=== PATIENT | male | born 1960 | race Caucasian/White ===

== ENCOUNTER 2023-01-19 09:20 | Outpatient (CLI) | payer BC, SELFPAY | END 2023-01-19 09:21 | disposition home or self-care (01) | LOC: NFLDREF 01-20 09:04 | PROVIDERS: PCP Family Medicine; Referring Provider Family Medicine; Visit Provider Family Medicine | DX: Z00.00 Encounter for general adult medical examination without abnormal findings (principal); E78.5 Hyperlipidemia, unspecified; I10 Essential (primary) hypertension; N40.0 Benign prostatic hyperplasia without lower urinary tract symptoms; F41.9 Anxiety disorder, unspecified; R97.20 Elevated prostate specific antigen [PSA] | CPT/HCPCS: 80053; 80061; 84153 ==

== ENCOUNTER 2023-04-13 09:04 | Outpatient (CLI) | payer BC, SELFPAY | END 2023-04-13 09:05 | disposition home or self-care (01) | LOC: NFLDREF 09:04 | PROVIDERS: PCP Family Medicine; Visit Provider Family Medicine | DX: Z12.5 Encounter for screening for malignant neoplasm of prostate (principal) | CPT/HCPCS: 84153 ==

== ENCOUNTER 2024-01-27 07:07 | Day surgery (SDC) | payer BC, SELFPAY ==
[2024-01-27] VITALS (7 sets, daily range): BP systolic 101–180; BP diastolic 66–99; PULSE 38–43; RESP 16; TEMP 36.3–36.7; O2SAT 94–96; BMI 27.0
[2024-01-27] MEDS: LACTATED RINGERS 1000 ML 1,000 ML 100 ML IV (10:45)
[2024-01-27] MEDS: fentaNYL 100 MCG/2 ML inj IVP (12:40)
[2024-01-27] MEDS: MIDAZOLAM HCL 1 MG/ML inj IVP (12:40)
[2024-01-27] MEDS: SODIUM CHLORIDE 0.9 % (FLUSH) 10 ML SYRINGE IVF (12:43)
--- NOTE | 2024-01-27 13:00 | XR_ITS ---
Patient: OSIEL SAAVEDRA Facility:?[facility] Patient ID:?[id number] Site Patient ID:?[id number]. Site :?1960 Study:?XRay-Extremity Left WRIST 3 VIEWS-01/27/2024 3:02:31 PM Ordering Physician:POLO Final Report: Indication: Left wrist ORIF. Technique: Three fluoroscopic intraoperative images of the left wrist were submitted for review. 31 seconds of intraoperative fluoroscopy time. Comparison: 01/22/2024. Findings/impression : Intraoperative fluoroscopic images demonstrate a partially threaded lag screw across the radial styloid. Fracture line is in anatomic alignment. No new fracture is seen. Please refer to operative report for additional details. Dictated by Shruti Watkins MD @ 01/28/2024 12:21:12 PM Signed by:?Shruti Watkins MD @01/28/2024 12:21:12 PM (Electronic Signature)
--- NOTE | 2024-01-27 13:06 | W.PM.NB ---
Nerve Block Nerve Block Time Seen by Provider: 12:46 Date Seen: 01/27/24 Type of block requested by surgeon for post-operative analgesia: axillary Time out performed: Yes Verification of patient name: Yes Verification of date of : Yes Site marking: site marked Name of person performing procedure: Brooks Continuous monitoring Was continuous monitoring of O2 sat, B/P, cardiac catheterization technician, recorded every 15 minutes?: Yes Procedure Checklist: sterile prep, needles and gloves Ultrasound guided. Images saved: Yes Medications given in 5ml increments after negative aspiration: Ropivicaine %: 0.5 mL: 30 Needle gauge: 22 Patient tolerated procedure well: Yes Additional comments: Needle noted adjacent to nerve Block Charges Block Charge (with Pro Fee): Brachial Plexus Use of Ultrasound Machine for Block: Yes- US Guidance/pain block
--- NOTE | 2024-01-27 13:07 | W.ANESCHARGE ---
Anesthesia Charges Start Date/Time Anesthesia Start Date: 01/27/24 Anesthesia Start Time: 14:01 Stop Date/Time Anesthesia Stop Date: 01/27/24 Anesthesia Stop Time: 15:03
[2024-01-27] MEDS: CEFAZOLIN 2 GM INJ IVP (14:06)
--- NOTE | 2024-01-27 14:08 | W.ANESCHARGE ---
Anesthesia Charges Start Date/Time Anesthesia Start Date: 01/27/24 Anesthesia Start Time: 14:01 Stop Date/Time Anesthesia Stop Date: 01/27/24 Anesthesia Stop Time: 15:03
--- NOTE | 2024-01-27 14:53 | PM.ORPRC ---
Procedure Note Date of procedure: 01/27/24 Procedure: PREOPERATIVE DIAGNOSIS: Left upper extremity radial styloid fracture POSTOPERATIVE DIAGNOSIS: Left upper extremity radial styloid fracture NAME OF OPERATION: Closed reduction, percutaneous screw fixation SURGEON: Malcom Samaniego MD WAFER POLISHING LEAD WORKER: CATINA Quintanilla ANESTHESIA: Axillary block plus monitored anesthesia care ESTIMATED BLOOD LOSS: 5 mL COMPLICATIONS: None SPECIMENS: None DRAINS: None PREOPERATIVE ANTIBIOTICS: Ancef 2 grams INDICATIONS: The patient is a 63-year-old who fell landing on their upper extremity sustaining the above injury. Given the fracture pattern, reduction and percutaneous screw fixation were recommended. The risks, benefits and expected outcomes were discussed in detail. These included but were not limited to: Infection, bleeding, injury to blood vessel or nerve, venous thromboembolism. All questions were answered to their satisfaction. Use of an research program assistant was necessary throughout the case for patient positioning and safety, maintenance of the reduction, surgical site dressing and splint application. PROCEDURE: A axillary block was placed by Anesthesia. The patient was placed supine on the operating room table. IV sedation was administered. The extremity was prepped and draped in the usual sterile fashion. A guide pin was placed percutaneously through the radial styloid, across the fracture site engaging the ulnar cortex of the proximal fragment. A stab incision was made around the guide pin and blunt dissection was carried down to the radial styloid. The countersink was used. Length was measured. The cannulated drill was used on the near cortex. An Arthrex 4.0 mm x 40 mm cannulated screw was placed across the fracture. The screw head was visualized and was not impinging on the crossing tendons, vessels or branches of the radial nerve. Its placement was confirmed with the image intensifier showing it is well placed. The reduction is anatomic and stable to fluoroscopic exam with radial and ulnar deviation of the wrist. The wound was irrigated normal saline. It was closed with a 3-0 Vicry deep and glue was used to seal the skin. A dry dressing and short-arm thumb spica splint was applied. These steps were all completed by the research program assistant. Sponge and needle counts were correct x2. The patient tolerated the procedure well, there were no apparent complications. They were taken to the postanesthesia care unit in satisfactory condition. PLAN: The patient will be discharged home. They will work on elevation of the hand and active range of motion of the fingers. They will follow up next week in the office for a wound check with three views of the wrist out of the splint prior to being seen in preparation for early active motion with a Velcro wrist brace.
--- NOTE | 2024-01-27 16:18 | SUR.PHASEII ---
Patient tolerated toast, water. Patient verbalized readiness to be discharged and understanding of discharge instructions. Patient voided prior to discharge.
== END 2024-01-27 15:57 | disposition home or self-care (01) ==
LOC: OR 07:07
PROVIDERS: PCP Family Medicine; Visit Provider Orthopaedic Surgery
PROC: (CPT 25575; principal; 2024-01-27 13:00)
DX: S52.512A Displaced fracture of left radial styloid process, initial encounter for closed fracture (principal); G89.18 Other acute postprocedural pain
CPT/HCPCS: 25606; 01810; 01820; 01830; 64415; 73110; 76000; 76942; A4580; C1713; J0690; J2250; J2704; J2795; J3010; J7120

== ENCOUNTER 2024-02-24 07:50 | Outpatient (CLI) | payer BC, SELFPAY | END 2024-02-24 07:51 | disposition home or self-care (01) | LOC: NFLDREF 02-28 13:31 | PROVIDERS: PCP Family Medicine; Referring Provider Family Medicine; Visit Provider Family Medicine | DX: Z12.5 Encounter for screening for malignant neoplasm of prostate (principal); E78.5 Hyperlipidemia, unspecified; I10 Essential (primary) hypertension | CPT/HCPCS: 80053; 80061; G0103 ==

== ENCOUNTER 2024-06-05 07:16 | Outpatient (CLI) | payer BC, SELFPAY ==
--- OUTSIDE RECORDS SUMMARY | 2024-06-05 07:18 | XMS_ITS | Clinical Summary ---
Author Organization [facility] Address [place], [place] [address] Care Team Providers Care Pilot Control Operator Helper Name Role Phone Mason Saldana MD Primary Care Provider [phone] Allergies No known active allergies Medications No known medications Active Problems Problem Noted Date Diagnosed Date Routine general medical exam ination at a health care facility 11/21/2008 Lipid screening 11/21/2008 Unspecified essential hypertension 11/21/2008 Other malaise and fatigue 11/21/2008 Tobacco use disorder 11/21/2008 Encounters Date Type Department Care Team Description 05/08/2024 2:52 PM CDT - 05/08/2024 11:59 PM CDT Hospital Encounter [address] [address] Dion Manuel MD Elevated PSA 05/08/2024 Travel 04/27/2024 Orders Only [address] [address] Dion Manuel MD 1 scan: (1-Ord) diag order from Last 3 Months Immunizations Name Administration Dates Next Due Td (Age >=7 Years) 06/05/2003 Family History Medical History Relation Name Comments Heart Disease Father Cancer Paternal Uncle Type? Hypertension Sister Anesthesia Problem No Family History Blood Disease No Family History Relation Name Status Comments Father (Age 49) [place] Mother Alive Paternal Uncle Sister Social History Tobacco Use Types Packs/Day Years Used Date Smoking Tobacco: Every Day Cigarettes Alcohol Use Standard Drinks/Week Comments Yes 0 (1 standard drink = 0.6 oz pur e alcohol) 5-6 days/week Sex and Gender Information Value Date Recorded Sex Assigned at Not on file Gender Identity Not on file Sexual Orientation Not on file Obstetrics History Last Filed Vital Signs Vital Sign Reading Time Taken Comments Blood Pressure 158/98 11/21/2008 1:35 PM KNOT TIER Pulse 54 11/21/2008 1:03 PM KNOT TIER Temperature 36.3 ??C (97.4 ??F) 11/21/2008 1:03 PM CS T Respiratory Rate - - Oxygen Saturation - - Inhaled Oxygen Concentration - - Weight 81 kg (178 lb 9.6 oz) 11/21/2008 1:03 PM KNOT TIER Height 179.7 cm (5' 10.75) 11/21/2008 1:[address] Body Mass Index 25.09 11/21/2008 1:03 PM KNOT TIER Plan of Treatment Health Maintenance Due Date Last Done Comments Tdap 1971 Depression screening for age 12+ 1972 HIV for age 15-65 1975 BMI (ht and wt on same day) for age 18+ 1978 Hepatitis C screening for ag e 18-79 1978 Colonoscopy through age 75 2005 Zoster (shingles) series for age 50+ (1 of 2) 2010 Tetanus booster 06/05/2013 06/05/2003 Lipids for age 45-75 11/28/2013 11/28/2008 COVID-19 vaccine series (2022- season) 2024 Influenza for age 50-64 05/21/2024 Pneumococcal series for age 6-64 Aged Out No longer eligible based on patient's age to complete this topic Procedures Procedure Name Priority Date/Time Associated Diagnosis Comments MR PELVIS PROSTATE WWO Routine 05/08/2024 5:06 PM CDT Elevated PSA LIPID PANEL W REFLEX MEASURED LDL Routine 11/28/2008 9:16 AM CDT Lipid Screening from Last 3 Months or Most Recently Relevant to Health Maintenance Results * MR PROSTATE W/WO CONTRAST (05/08/2024 5:06 PM CDT) Anatomical Region Laterality Modality Pelvis Magnetic Resonan ce 05/10/2024 9:27 AM CDT Impressions 05/10/2024 9:27 AM CDT 1. PI-RADS 3 lesion in the left peripheral zone. REFERENCE: PI-RADS Prostate Imaging - Reporting and Data System 2015 version 2. ??ACR, the [employer] [place] [employer]. Dictated by Alphonso Corcoran MD @ 05/10/2024 9:27:21 AM (Electronically Signed) Narrative 05/10/2024 9:27 AM CDT For Patients: ??As a result of the Cures Act, medical imaging exams and procedure reports are released immediately into your electronic medical record. ??You may view this report before your referring provider. ??If you have questions, please contact your health care provider. CLINICAL INDICATION: Elevated PSA. TECHNIQUE: MRI of the prostate on a 1.5T machine with T1, T2, diffusion-weighted and dynamic post-contrast images obtained. [employer] post-processing software was used for image analysis. ?? FINDINGS: The prostate midline length = 6.1 cm, width at base = 5.1 cm, mid = 6.1 cm, apex = 4.8 cm. Estimated volume = 90 cc. 1.9 x 1.2 x 0.8 cm lesion in the left peripheral zone at the base of the prostate gland at the 5 to 6 o`clock position shows mild decreased ADC and increased DWI signal. PI-RADS category 3: Intermediate risk of prostate cancer. No justin-prostatic or pelvic side wall adenopathy. No other bony or soft tissue abnormalities identified. Procedure Note Alphonso Corcoran MD - 05/10/2024 For Patients: As a result of the Cures Act, medical imagingexams and procedure reports are released immediately into your electronicmedical record. You may view this report before your referring provider.If you have questions, please contact your health care provider. CLINICAL INDICATION: Elevated PSA. TECHNIQUE: MRI of the prostate on a 1.5T machine with T1, T2, diffusion-weighted anddynamic post-contrast images obtained. [employer] post-processing software was used for image analysis. FINDINGS: The prostate midline length = 6.1 cm, width at base = 5.1 cm, mid = 6.1cm, apex = 4.8 cm. Estimated volume = 90 cc. 1.9 x 1.2 x 0.8 cm lesion in the left peripheral zone at the base of theprostate gland at the 5 to 6 o`clock position shows mild decreased ADC andincreased DWI signal. PI-RADS category 3: Intermediate risk of prostate cancer. No justin-prostatic or pelvic side wall adenopathy. No other bony or soft tissue abnormalities identified. IMPRESSION: 1. PI-RADS 3 lesion in the left peripheral zone. REFERENCE: PI-RADS Prostate Imaging - Reporting and Data System 2015 version 2. ACR,the [employer] [place] [employer]. Dictated by Alphonso Corcoran MD @ 05/10/2024 9:27:21 AM (Electronically Signed) Dion Manuel MD MR * (ABNORMAL) LIPID PANEL W REFLEX MEASURED LDL (11/28/2008 9:16 AM CDT) CHOLESTEROL,TOTAL 195 110 - 199 mg/dL [facility] TRIGLYCERIDES 126 <150 mg/dL [facility] HDL CHOLESTEROL 39(L) >40 mg/dL [facility] CHOL/HDL RATIO 5.00(H) <4.51 [facility] LDL CHOLESTEROL 131(H) <131 mg/dL [facility] PATIENT STATUS Fasting [facility] Blood specimen (specimen) BLOOD SPECIMEN / Unknown 11/28/2008 9:16 AM CDT 11/28/2008 9:11 AM CDT Dwain Boston MD CHEMISTRY [facility] [address] [place] [address] from Last 3 Months or Most Recently Relevant to Health Maintenance Care Teams Pilot Control Operator Helper Relationship Specialty Start Date End Date Mason Saldana MD [address] [place] [phone] PCP - General Family Practice 05/08/24
--- NOTE | 2024-06-05 08:17 | W.ANESCHARGE ---
Anesthesia Charges Start Date/Time Anesthesia Start Date: 06/05/24 Anesthesia Start Time: 07:50 Stop Date/Time Anesthesia Stop Date: 06/05/24 Anesthesia Stop Time: 08:12
--- NOTE | 2024-06-05 12:04 | W.ANESCHARGE ---
Anesthesia Charges Start Date/Time Anesthesia Start Date: 06/05/24 Anesthesia Start Time: 07:50 Stop Date/Time Anesthesia Stop Date: 06/05/24 Anesthesia Stop Time: 08:12
== END 2024-06-05 07:17 | disposition home or self-care (01) ==
LOC: OP CLINIC 07:16
PROVIDERS: PCP Family Medicine; Visit Provider Internal Medicine
DX: Z86.010 Personal history of colon polyps (principal)
CPT/HCPCS: 00812; 45378; J2704

== ENCOUNTER 2024-11-29 08:49 | Outpatient (CLI) | payer BC, SELFPAY | END 2024-11-29 08:50 | disposition home or self-care (01) | LOC: NFLDREF 08:49 | PROVIDERS: PCP Family Medicine; Visit Provider Family Medicine | DX: Z01.818 Encounter for other preprocedural examination (principal) | CPT/HCPCS: 80048 ==

== ENCOUNTER 2024-12-04 07:36 | Day surgery (SDC) | payer BC, SELFPAY ==
[2024-12-04] VITALS (14 sets, daily range): BP systolic 111–187; BP diastolic 69–124; PULSE 36–48; RESP 12–16; TEMP 36.1–36.7; O2SAT 95–98; BMI 26.9
[2024-12-04] MEDS: LACTATED RINGERS 1000 ML 1,000 ML 100 ML IV (08:20)
[2024-12-04] MEDS: SODIUM CHLORIDE 0.9 % (FLUSH) 10 ML SYRINGE IVF (08:20)
--- NOTE | 2024-12-04 09:37 | W.PM.H&PU ---
History & Physical Update History & Physical Update H&P Reviewed and patient assessed: No changes noted
--- NOTE | 2024-12-04 09:37 | PM.GSPRC ---
Operative Note Date of procedure: 12/04/24 Pre-op diagnosis: Symptomatic internal and external hemorrhoids Post-op diagnosis: Same Type of Procedure: 2 quadrant hemorrhoidectomy Indications: The patient is a 64-year-old male who was recently seen in clinic with concerns for hemorrhoids for several years. He states that in the last several months his symptoms have become more severe and he has had bright red blood per rectum and difficulty with hygiene. He was found to have several external hemorrhoidal tags as well as partially prolapsed internal hemorrhoidal tissue. Surgical hemorrhoidectomy was discussed and he agreed to proceed. Procedure Description: After discussing the risks and benefits of the procedure, the patient signed informed consent.? The patient was brought to the operating room. A spinal anesthetic was administered. Please see anesthesia notes for details. The patient was then placed in the prone joanna-knife position with care to pad his pressure points. Sedation was then administered.? The operative site was then prepped and draped in the usual sterile fashion.? A time-out was then performed. The patient had a pedunculated external skin tag in the left posterior position. He had a larger broad-based area of redundant external hemorrhoidal tissue with slightly prolapsed internal hemorrhoid tissue noted. This was at the left anterolateral position. A digital rectal exam was performed. No masses were palpable. The Mejia Noxen was then introduced into the anal canal. The pedunculated skin tag externally in the left posterior was noted to be contiguous with an internal hemorrhoidal column. As mentioned, the left anterolateral external hemorrhoidal tissue was contiguous with a larger cushion internally. The patient also had some redundant tissue in the left posterior. This was all internal. The anoderm was incised at the distal base of the pedunculated skin tag. The tissue was then scored using cautery to the plan extent of excision at the apex of the internal hemorrhoid. Cautery was then used to excise the skin tag and internal hemorrhoidal tissue, with care to stay above the palpable sphincter complex. The tissue was completely excised and 3-0 chromic suture was then run from the apex within the anal canal to the anal derm in a locking fashion. Hemostasis appeared excellent. The small apex on the anoderm was left open. Next, attention was turned to the left anterolateral position. Similarly the distal and proximal extents was marked with cautery and the tissue then scored. The external hemorrhoidal tissue was then elevated off of the sphincter complex using cautery with care to avoid injury to the sphincter muscle palpable below. The internal hemorrhoidal tissue was then excised. The tissue from both areas was sent to pathology. Hemostasis was achieved with a combination of cautery and similarly by over-sewing the internal hemorrhoidal column using 3-0 chromic suture with a locking fashion. Again the very distal aspect on the anal derm was left open. The wounds were again examined and hemostasis appeared excellent. The anal canal did not appear narrowed. Surgicel was placed over both suture lines. The patient tolerated the procedure well. He was then woken and transported into the recovery area in stable condition. ? The patient tolerated the procedure well. Findings: 1. Large pedunculated external hemorrhoid in the left posterior position. 2. External hemorrhoidal tissue noted anteriorly contiguous with left anterolateral hemorrhoidal column. 3. Internal hemorrhoids noted in the right posterior position. Anesthesia: MAC and spinal Surgeon: Isamar Cordero MD Estimated blood loss (mL): 5 Specimen: Other Additional Specimen Information: Hemorrhoidal tissue Condition: stable Disposition: PACU
[2024-12-04] MEDS: CEFAZOLIN 1 GM inj IVP (10:28)
--- NOTE | 2024-12-04 11:09 | P.ANES_ITS ---
Anesthesia Charges Start Date/Time Anesthesia Start Date: 12/04/24 Anesthesia Start Time: 10:03 Stop Date/Time Anesthesia Stop Date: 12/04/24 Anesthesia Stop Time: 11:05 Coding CPT Codes CPT Codes: ANESTH ANORECTAL SURGERY - 80428 ([id number]) P3 - PATIENT W/SEVERE SYS DISEASE, QK - PERSONNEL RESEARCH SCIENTIST 2-4 CNCRNT ANES PROC, QX - MACHINE CLOTH MEASURER SVC W/ MD MED DIRECTION
--- NOTE | 2024-12-04 11:09 | W.ANESCHARGE ---
Anesthesia Charges Start Date/Time Anesthesia Start Date: 12/04/24 Anesthesia Start Time: 10:03 Stop Date/Time Anesthesia Stop Date: 12/04/24 Anesthesia Stop Time: 11:05 Coding CPT Codes CPT Codes: ANESTH ANORECTAL SURGERY - 00290 ([id number]) P3 - PATIENT W/SEVERE SYS DISEASE, QK - PROGRAM SUPPORT CLERK 2-4 CNCRNT ANES PROC, QX - TRAINING AND QUALITY MANAGER SVC W/ MD MED DIRECTION
--- NOTE | 2024-12-04 11:25 | P.ANES_ITS ---
Anesthesia Charges Start Date/Time Anesthesia Start Date: 12/04/24 Anesthesia Start Time: 10:03 Stop Date/Time Anesthesia Stop Date: 12/04/24 Anesthesia Stop Time: 11:05 Coding CPT Codes CPT Codes: ANESTH ANORECTAL SURGERY - 31884 ([id number]) P3 - PATIENT W/SEVERE SYS DISEASE, QK - AGILE TEST LEAD 2-4 CNCRNT ANES PROC, QX - DIRECTOR INFORMATION SECURITY SVC W/ MD MED DIRECTION
--- NOTE | 2024-12-04 11:25 | W.ANESCHARGE ---
Anesthesia Charges Start Date/Time Anesthesia Start Date: 12/04/24 Anesthesia Start Time: 10:03 Stop Date/Time Anesthesia Stop Date: 12/04/24 Anesthesia Stop Time: 11:05 Coding CPT Codes CPT Codes: ANESTH ANORECTAL SURGERY - 78520 ([id number]) P3 - PATIENT W/SEVERE SYS DISEASE, QK - MOISTURE METER OPERATOR 2-4 CNCRNT ANES PROC, QX - TONGUE LINING STITCHER SVC W/ MD MED DIRECTION
[2024-12-04] MEDS: HYDRALAZINE HCL 20 MG/ML inj 10 MG IVP (12:49)
--- NOTE | 2024-12-04 13:01 | SUR.PHASEII ---
Patient's blood pressures increasing during PACU Phase II. Anesthesia aware, patient anxious to discharge. Patient up to void, denies pain. Hydralazine given. Patient refusing to stay for follow-up blood pressures as ordered per protocol. AMA paperwork signed at 1257 and ambulatory from hospital.
== END 2024-12-04 12:57 | disposition home or self-care (01) ==
PROVIDERS: PCP Family Medicine; Visit Provider Surgery
PROC: (CPT 46260; principal; 2024-12-04 09:00)
DX: K64.8 Other hemorrhoids (principal); K64.4 Residual hemorrhoidal skin tags
CPT/HCPCS: 46260; 00902; J0360; J0690; J2250; J2704; J3010; J7120

== ENCOUNTER 2025-03-01 06:15 | Day surgery (SDC) | payer BC, SELFPAY ==
[2025-03-01] VITALS (8 sets, daily range): BP systolic 146–170; BP diastolic 71–91; PULSE 45–52; RESP 15–16; TEMP 37–37.1; O2SAT 96–99; BMI 25.7
[2025-03-01] MEDS: BUPIVACAINE 0.5 %/EPI 1:200K INJECTION (07:15)
[2025-03-01] MEDS: LIDOCAINE 1%-EPI 1:100,000 20 ML INFILTRATI (07:15)
--- NOTE | 2025-03-01 07:42 | P.ORPRC_ITS ---
Procedure Note Date of procedure: 03/01/25 Procedure: Preop diagnosis: Left upper extremity carpal tunnel syndrome Postop diagnosis: Left upper extremity carpal tunnel syndrome Procedure: Left upper extremity carpal tunnel release Anesthesia: Local Surgeon: Malcom Samaniego MD marketing administrative assistant: NATHANIEL Maki EBL: 2 mL Complications: None Specimens: None Drains: None Indications: The patient has a history of left upper extremity carpal tunnel syndrome symptoms. Despite appropriate nonoperative management consisting of nighttime bracing and occupational therapy they continue to have symptoms. Operative intervention was recommended. The risks, benefits alternatives and expected outcomes were discussed in detail. These included but were not limited to: Infection, bleeding, injury to blood vessel or nerve, venous thromboembolism. All questions were answered to their satisfaction. The patient was placed supine on the operating room table. Local anesthesia was established with 0.5% Marcaine with epinephrine and 2% lidocaine with epinephrine. The hand was prepped and draped in usual sterile fashion. A longitudinal incision was made centered over the radial border of the ring finger at the base of the palm. Subcutaneous dissection was sharply taken through the palmar fascia and the palmaris brevis to the transverse carpal ligament. The ligament was divided in line with the incision. Proximal and distal dissection was carried with tenotomy and Metzenbaum scissors for a wide decompression of the carpal tunnel. The wound was closed with a 3-0 nylon. A bulky dry dressing was applied, sponge and needle counts were correct x 2. The patient tolerated the procedure well, there were no apparent complications. They were sent to same day surgery in satisfactory condition. Plan: Use of the hand as tolerates. Discontinue the intraoperative dressing on postoperative day 3 and may get the wound wet as tolerates. Follow up in the office in 2 weeks for a wound check and suture removal. Given the severity of the disease, it will likely take several to many months for the nerve to recover.
== END 2025-03-01 07:57 | disposition home or self-care (01) ==
LOC: OR 06:15
PROVIDERS: PCP Family Medicine; Visit Provider Orthopaedic Surgery
PROC: (CPT 64721; principal; 2025-03-01 07:15)
DX: G56.02 Carpal tunnel syndrome, left upper limb (principal)
CPT/HCPCS: 64721; J3490

== ENCOUNTER 2025-06-14 07:45 | Outpatient (CLI) | payer MEDICARE, BC, SELFPAY | END 2025-06-14 07:46 | disposition home or self-care (01) | LOC: NFLDREF 06-18 03:27 | PROVIDERS: PCP Family Medicine; Referring Provider Family Medicine; Visit Provider Family Medicine | DX: E78.5 Hyperlipidemia, unspecified (principal); R97.20 Elevated prostate specific antigen [PSA]; Z12.5 Encounter for screening for malignant neoplasm of prostate | CPT/HCPCS: 80053; 80061; G0103 ==

== ENCOUNTER 2025-06-27 08:04 | Outpatient (CLI) | payer MEDICARE, BC, SELFPAY ==
--- NOTE | 2025-06-27 08:15 | CRLHL7_ITS ---
For Patients: As a result of the Century Cures Act, medical imaging exams and procedure reports are released immediately into your electronic medical record. You may view this report before your referring provider. If you have questions, please contact your health care provider. INDICATION: Abdominal aortic aneurysm screening. TECHNIQUE: Ultrasound aorta with color Doppler analysis. COMPARISON: None. FINDINGS: Proximal abdominal aorta is 2.9 x 2.8 cm. Mid abdominal aorta is 2.4 x 2.5 cm. Aneurysmal dilatation of the distal abdominal aorta extends near the bifurcation and measures 5 x 4.9 cm in greatest AP and transverse dimension, extending over a length of 5.7 cm. Aorta at the bifurcation is 2.9 x 2.6 cm. Right common iliac artery is 2 cm. Left common iliac artery is 1.8 cm. IMPRESSION: Infrarenal abdominal aortic aneurysm measuring 5 x 4.9 cm. Vascular surgery consultation regarding further management recommended. Original attempt to contact Dr. Saldana by telephone at 8:45 a.m. on 06/27/2025 was unsuccessful. An addendum to this report will be issued once confirmed. Dictated by Bernardo Doherty MD @ 06/27/2025 8:52:20 AM Dictated by: Bernardo Doherty MD @ 06/27/2025 08:52:41 (Electronically Signed)
== END 2025-06-27 08:05 | disposition home or self-care (01) ==
LOC: US 08:06
PROVIDERS: PCP Family Medicine; Visit Provider Family Medicine
DX: Z13.6 Encounter for screening for cardiovascular disorders (principal); I71.43 Infrarenal abdominal aortic aneurysm, without rupture
CPT/HCPCS: 76706

== ENCOUNTER 2025-09-14 18:28 | Outpatient (CLI) | payer MEDICARE, BC, SELFPAY | END 2025-09-14 18:29 | disposition home or self-care (01) | LOC: AMB 09-16 23:30 | PROVIDERS: PCP Family Medicine; Visit Provider Emergency Medicine Emergency Medical Services | DX: R55 Syncope and collapse (principal) | CPT/HCPCS: A0425; A0427 ==

== ENCOUNTER 2025-09-14 18:57 | Emergency (ER) | payer MEDICARE, BC, SELFPAY ==
--- OUTSIDE RECORDS SUMMARY | 2025-02-03 03:00 | XMS_ITS ---
Author Organization [facility] Address [address] [place] [phone] Care Team Providers Care Fruit Ii Farmworker Name Role Phone Migration, Provider Unavailable Unavailable REASON FOR VISIT EMR-Francis Encounters Encounter Location Date Provider Diagnosis [facility] [address] [place] [phone] 02/03/2025 Provider Migration Plan Of Treatment No Information Progress Notes * Joseph CASTILLODOB:1959 (65 yo M)Acc No.[id number]:02/03/2025 Patient:?Joseph CASTILLO :1960???Age:64 Y???Sex:MalePhone:[phone] Address:[address] [place] [address], [address] Subjective: * Chief Complaints: * E MR-Francis * * Date:?
--- OUTSIDE RECORDS SUMMARY | 2025-02-04 03:00 | XMS_ITS ---
Author Organization [facility] Address [address] [place] [phone] Care Team Providers Care Light Rail Vehicle Operator Name Role Phone Migration, Provider Unavailable Unavailable REASON FOR VISIT EMR-Francis Encounters Encounter Location Date Provider Diagnosis [facility] [address] [place] [phone] 02/04/2025 Provider Migration Plan Of Treatment No Information Progress Notes * Joseph CASTILLODOB:1959 (65 yo M)Acc No.[id number]:02/04/2025 Patient:?Joseph CASTILLO :1960???Age:64 Y???Sex:MalePhone:[phone] Address:[address] [place] [address], [address] Subjective: * Chief Complaints: * E MR-Francis * * Date:?
[2025-09-14] VITALS (18 sets, daily range): BP systolic 128–197; BP diastolic 89–108; PULSE 55–104; RESP 13–22; TEMP 36.6; O2SAT 88–97; BMI 26.4
--- OUTSIDE RECORDS SUMMARY | 2025-09-14 19:01 | XMS_ITS | Clinical Summary ---
Author Organization [facility] Address [address] [place] [address] Care Team Providers Care Speech Therapist Early Intervention Name Role Phone Mason Saldana MD Primary Care Provider [phone] Allergies No known active allergies Medications No known medications Active Problems ProblemNoted DateDiagnosed DateRoutine general medical examination at a health care slytvcqq78/04/2009Lipid yeivpihst37/04/2009Unspecified essential /04/2009Other malaise and pxyplrx3711/21/2008Tobacco use disorder 11/21/2008 Immunizations ImmunizationAdministration DatesNext DueTd (Age >=7 Years)06/05/2003 Family History Medical HistoryRelationNameCommentsHeart DiseaseFatherCancerPaternal UncleType? HypertensionSisterAnesthesia ProblemNo Family HistoryBlood DiseaseNo Family HistoryRelationNameStatusCommentsFatherDeceased (Age 49)MIMotherAlivePaternal UncleSister Social History Tobacco UseTypesPacks/DayYears UsedDateSmoking Tobacco: Every DayCigarettes Alcohol UseStandard Drinks/WeekCommentsYes0 (1 standard drink = 0.6 oz pure alcohol)5-6 days/weekSex and Gender InformationValueDate RecordedSex Assigned at BirthNot on fileLegal ViaTzey4610/03/2012 5:26 AM CSTGender IdentityNot on file Sexual OrientationNot on fileOccupationIndustryJob Start DateJob End DateRadio Station OwnerNot on fileNot on fileNot on file Last Filed Vital Signs Vital SignReadingTime TakenCommentsBlood Reguyaoo857/9803 1:35 PM [employer]OURER Umtza7714 1:03 PM MHBFaitrynwifz45.3 ??C (97.4 ??F)11/21/2008 1:03 PM CSTRespiratory Rate--Oxygen Saturation--Inhaled Oxygen Concentration--Zkbtqt37 kg (178 lb 9.6 oz)11/21/2008 1:03 PM PHSRpqvrq624.7 cm (5' 10.75)11/21/2008 1:03 PM CSTBody Mass Index25.0911/21/2008 1:03 PM [employer] Plan of Treatment Health MaintenanceDue DateLast DoneCommentsDepression screening for age 12+ 1972HIV for age 15-BMI (ht and wt on same day) for age 18+ 1978Hepatitis C screening for age 18-Colonoscopy through age Pneumococcal series for age 50+ (1 of 1 - PCV)2010Zoster (shingles) series for age 50+ (1 of 2)2010Tetanus zvzypgl3206/05/2013 06/05/2003Lipids for age 45-COVID-19 vaccine series ( - 2024-26 season)2025Influenza Vaccine (#1)2025RSV vaccine for adults or (1 - 1-dose 75+ series)2035Hepatitis B series for 19+Aged Out No longer eligible based on patient's age to complete this topic Procedures Procedure NamePriorityDate/TimeAssociated DiagnosisCommentsLIPID PANEL W REFLEX MEASURED IDICvmgwue59/11/2009 9:16 AM CDT Lipid Screening from Last 3 Months or Most Recently Relevant to Health Maintenance Results * (ABNORMAL) LIPID PANEL W REFLEX MEASURED LDL (11/28/2008 9:16 AM CDT)Component ValueRef RangeTest MethodAnalysis TimePerformed AtPathologist Signature CHOLESTEROL,[id number] - 199 mg/dLNOBIGFOR[facility] VAL[facility] KAKXZHQWJEFYNGSU180<150 mg/dLNOBIGFORK VALLEY [facility]PITAL LABHDL JQRBAORVYVV72(L)>40 mg/dLNOBIGFORK VALLEY [facility]ITAL LABCHOL/HDL RATIO5.00(H)<4.51NO[facility] LABLDL BLJFZLSNQZK622(H)<131 mg/dLNOBIGFORK VALLEY HOSPITAL LABPATIENT STATUSFastingNORTFOREST HEALTH [facility] LABSpecimen (Source)Anatomical Location / LateralityCollection Method / VolumeCollection TimeReceived Time Blood specimen (specimen)BLOOD SPECIMEN / Qmruslw8611/28/2008 9:16 AM CDT 11/28/2008 9:11 AM CDT Narrative Authorizing ProviderResult TypeResult StatusTimyudelka Boston MDCHEMISTRYFinal ResultPerforming OrganizationAddressCity/State/ZIP CodePhone Number [facility] [address] [place] [address] from Last 3 Months or Most Recently Relevant to Health Maintenance Insurance Care Teams Team MemberRelationshipSpecialtyStart DateEnd Date Mason Saldana MD [address] [place] [address] PCP - GeneralFamily Practice05/08/24
--- OUTSIDE RECORDS SUMMARY | 2025-09-14 19:01 | XMS_ITS | Patient Health Record ---
Author Organization [facility] Address [address] [place] [phone] Care Team Providers Care Can Solderer Name Role Phone Migration, Provider Unavailable Unavailable Reason For Referral No Information Encounters Encounter Location Date Provider Diagnosis [facility] [address] [place] [address] 02/03/2025 Provider Migration [facility] [address] [place] [address]/18/2025Provider Migration Plan Of Treatment No Information
--- OUTSIDE RECORDS SUMMARY | 2025-09-14 19:01 | XMS_ITS | Data Portability ---
Author Organization [place] [facility] [place] [facility] Address [address] [place] [address] [address] [place] [address] Care Team Providers Care Automotive Glass Mechanic Name Role Phone TRISH LISA Primary Care Provider [phone] Assessment Encounter Date Assessment Date Assessment LastModified by Organization Details LastModified Time 06/12/2024 06/12/2024 64M with elevate d PSA. - call if fever - f/u with Dr Manuel for resultsmoshaughnessyNot drmcimlgj05/23/2024 15:02:03 Plan of Treatment Reminders Order DateSubmit DateProviderLast Modified ByOrganization DetailsLast Modified TimeDetailsAppointmentsNone recorded.Labliquid biopsy, prostate, urine04/04/2024 04/04/2024[facility], [address] [place], [address], 07/ 05:15:24ReferralNone recorded.Proceduresbladder scan (PROC) /02/[address], [facility], [address], [place], [address], 50/02/2025 15:25:15bladder scan (PROC)/sifair havenckMin[facility], [facility] [facility], [address], [place], [address], 83/ 15:09:46 SurgeriesNone recorded.ImagingNone recorded.Medication Ordersceftriaxone 1 gram solution for /kmasbergNot fskszrniy82/24/2024 08:58:35 Patient TargetsNo targets recorded. Patient Instructions Encounter Date Encounter Id Patient Instructions Last Modified By Organization Details Last Modified Time 04/04/2024 [id number] will sent urine for select MDX and call with report. dsieracki Not available 04/04/2024 15:22:50 01/23/2025 [id number] continue current meds and rtc with PSA in June for rx refills swales3 Not available 01/23/2025 15:32:49 Reason for Referral None Reported. Results Created Date Observation Date Name Description Value Unit Range Abnormal Flag Note LastModifiedBy Organization Detail LastModifiedTime 04/04/2024 04/04/2024 bladder scan (PROC) Volume (in mL) 250 mL Not AvailableUa_[facility]. [facility] [address] [address], [place], [address], 04/04/2024 14:56:06/ladder scan (PROC)Volume (in mL)126Not AvailableLower [facility] Hospital [address] [address], [place], [address], 01/04/2025 15:12:2708///MRI, prostate, w/wo contrastNo observation recorded.[facility] [address] [place], [address], [address]105/26/2024 16:05:38 Result Notes None recorded. Problems Name Problem SNOMED Code Status Onset Date Resolution Date Notes Provider Name and Address Organization Details Recorded Time Prostate specific antigen above reference range 161549290 Active 05/05/2024 Dion Manuel MD [address], [place], [address], [facility] Zllmybs1005/05/2024 08:43:20 Problem Notes None recorded. Procedures Surgical History Date Name Laterality Status Provider Name and Address Organization Details Recorded Time 01/23/2025 Bladder Scan completedShalice GonsalezM [facility]01/23/2025 15:24:52011/20/2024 hemorrhoidectomycompletedSileanaisa WallaceM Health [facility]01/23/2025 15:25:50 06/12/2024rostate Biopsy ProcedurecompletedFlaco Spaulding MD, PHD [address] [place] [address],[facility] [address], [address], [facility]06/12/2024 15:30:03[address]/12/2024ocephin/Ceftriaxonecompleted Lizeth DavilaM Health [facility] Hospital06/12/2024 14:40:59[address]/12/2024URONAVcompleted Flaco Spaulding MD, PHD [address] [place] [address],[facility] [address], [address], [facility]06/12/2024 15:01:38[address]/04/2024ladder ScancompletedDe[facility]era [facility]04/04/2024 14:55:5407olonoscopycompleted [facility]04/04/2024 14:55:13 Imaging Results None recorded. Procedure Notes None recorded. Medical Equipment None Reported. Allergies Allergen ID Allergen Name Allergen Category Reaction Reaction Severity Criticality Documentation Date Start Date Code Code System Note Provider Name and Address Organization Details Recorded Time 756757 Canis lupus familiaris extract environmen t Not available Not available low504/3130055082RbMlciLwwldvn [facility], [facility]01/23/2025 15:23:27 No known drug allergies Medications Name Sig Start Date Stop Date Status Note LastModified by Organization Details LastModified Time hydrocodone 5 mg-acetaminophen 325 mg ta blet TAKE 1 TO 2 TABLETS BY MOUTH EVERY SIX HOURS NEEDED FOR PAIN activeNot AvailableNot AvailableNot Availablesimvastatin 40 mg tabletTAKE ONE TABLET BY MOUTH AT BEDTIMEactiveNot AvailableNot AvailableNot Available oxycodone-acetaminophen 5 mg-325 mg tabletTAKE 1 TO 2 TABLETS BY MOUTH EVERY 4 TO 6 HOURS NEEDED FOR PAIN.4completedNot AvailableNot AvailableNot Availableceftriaxone 1 gram solution for injectionTake 1 g by injection route. 4activeNot AvailableNot AvailableNot Availabletamsulosin 0.4 mg capsule TAKE TWO CAPSULES BY MOUTH EVERY DAYactiveNot AvailableNot AvailableNot Availableomeprazole 20 mg capsule,delayed releaseTAKE ONE CAPSULE(20MG) BY MOUTH EVERY DAYactiveNot AvailableNot AvailableNot Availablehydrochlorothiazide 25 mg tabletTAKE ONE TABLET BY MOUTH DAILYactiveNot AvailableNot AvailableNot Availablelorazepam 1 mg tabletTAKE 1 TABLET NEEDED BY ORAL ROUTE, FOR CLAUSTROPHOBIA.4completedNot AvailableNot AvailableNot Available lisinopril 40 mg tabletTAKE ONE TABLET BY MOUTH EVERY DAYactiveNot AvailableNot AvailableNot Availablefinasteride 5 mg tabletTAKE 1 TABLET BY MOUTH EVERY DAY 5activeNot AvailableNot AvailableNot Availablepeg 3350-electrolytes 236 gram-22.74 gram-6.74 gram-5.86 gram solutionDRINK 240 ML BY MOUTH AT 4PM DAY PRIOR TO PROCEDURE. DRINK 8OZ GLASS EVERY 15 MIN. UNTIL 1/2 IS GONE. 6 HOURS PRIOR TO PROCEDURE DRINK REMAINING UNTIL GONE4completedNot AvailableNot AvailableNot Available Vitals Date Recorded Body height Body mass index (BMI) Body weight Provider Name and Address Organization Details Last Updated DateTime 01/23/2025 180.34 cm 25.8 kg/m2 69930.59 g Vashti Gonsalez [facility] 01/23/2025 15:23:20 Date Recorded Body height Body mass index (BMI) Body weight Provider Name and Address Organization Details Last Updated DateTime 04/04/2024 180.34 cm 26.5 kg/m2 39408.55 g Bria Tristan [facility] 04/04/2024 14:53:49 Date Recorded Body height Body mass index (BMI) Body weight Provider Name and Address Organization Details Last Updated DateTime 06/12/2024 180.34 cm 26.5 kg/m2 25421.55 g Lizeth Davila [facility] 06/12/2024 14:40:02 Social History Question Answer Notes LastModified by Organization D etails LastModified Time Tobacco Smoking Status Former Smoker Bria youngblood [facility] Xjrlffk0704/04/2024 14:54:59What Is Your Level Of Caffeine Consumption?OccasionaldsierackiInformation not ocdcajkhg47/16/2024When Did You Quit Smoking?1-5yearssincelastcigarettedsierackiInformation not available 04/04/2024What Was The Date Of Your Most Recent Tobacco Screening?01/23/2025 wlffgm0Slxysclsvor not oqimajvne82/06/2025Have You Ever Been Counseled For Unhealthy Alcohol Use?NodsierackiInformation not kqrwztcez18/16/2024Has Tobacco Cessation Counseling Been Provided?NodsierackiInformation not available 04/04/2024How Many Days In The Past Year Have You Consumed 5 Or More Drinks?0 dsierackiInformation not ruvtethxn31/16/2024 Sex: Male Functional Status Question Answer Note LastModified by Organization D etails LastModified Time Do you use any illicit or recreational drugs? No dsierackiInformation not ampozvxok99/16/2024o you or have you ever used any other forms of tobacco or nicotine?NodsierackiInformation not available 04/04/2024What is your level of alcohol consumption?Occasionaldsieracki Information not xeehhcaxn94/16/2024 Mental Status None recorded. Family History Relationship Description Onset Age of this Age Resolved Age Notes LastModified by Organization Details LastModified Time Father No current problems or disabilit y dsierackiNot wskxvsdat26/16/2024 14:54:30MotherNo current problems or disability dsierackiNot /16/2024 14:54:30 Medical History Condition Response Sexually Transmitted Infection N Diabetes N Other N Bleeding Disorder N High Blood Pressure Y Kidney Stones N High Cholesterol Y GERD/Acid Reflux Y Heart Disease N Cancer N Lung Disease N Depression N Immunizations Vaccine Type Date Status Note Provider Nam e and Address Organization Details Recorded Time Influenza, recombinant, quadrivalent, PF 10/03/2019 completed Bria youngblood [facility] Qjgbyhu9204/04/2024 14:53:53zoster cuelgavtwdq36/28/2021completed Bria youngblood [facility] Ovkecnr9004/04/2024 14:53:54zoster djtlhfvowsw36/23/2022completed Dezera Sieracki null, [facility]04/04/2024 14:53:54COVID-19, mRNA, LNP-S, PF, 100 mcg/0.5mL dose or 50 mcg/0.25mL dose12/06/2020ompletedDezera Sieracki null, [facility]04/04/2024 14:53:54COVID-19, mRNA, LNP-S, PF, 100 mcg/0.5mL dose or 50 mcg/0.25mL dose01/03/2021ompletedDezera Sieracki null, [facility]04/04/2024 14:53:75Lcho8012/21/2012completedDezera Sieracki null, [facility]04/04/2024 14:53:13Eibq6001/26/2024ompletedDezera Sieracki null, [facility]04/04/2024 14:53:54Influenza, split virus, trivalent, bmvrimyjznhk51/18/2003completedDezera Sieracki null, [facility]04/04/2024 14:53:54Td (adult), 2 Lf tetanus toxoid, preservative free, /16/2003completedDezera Sieracki null, [facility]04/04/2024 14:53:54Influenza, split virus, quadrivalent, PF10/17/2020ompletedDezera Sieracki null, [facility]04/04/2024 14:53:54Influenza, split virus, quadrivalent, PF07/19/2018completedDezera Sieracki null, [facility]04/04/2024 14:53:54Influenza, split virus, quadrivalent, PF09/06/2017completedDezera Sieracki null, [facility]04/04/2024 14:53:54 Past Encounters Encounter ID Performer Location Encounter Start Date Encounter Closed Date Diagnosis/Indication Diagnosis SNOMED-CT Code Diagnosis ICD10 Code Diagnosis IMO Codes Diagnosis Note [id number] Dion Manuel MD [facility] [address] [place] [address] 04/04/2024 14:46:41 04/18/2024 19:50:02 Prostate specific antigen above reference range 733754430 R97.20 [id number] Spaulding MD, PHDUA[facility] [address] [facility] [address] [place] [address] 06/12/2024 14:20:0709 15:09:59Prostate specific antigen above reference iybok427104208A36.20 [id number] Manuel MD_[facility] [address] [place] [address] 01/23/2025 15:15:04001/25/2025 10:07:18Prostate specific antigen above reference djcjw923818134Q57.20 Health Concerns Section Related Observation LastModified by Organization Detai ls LastModified Time None Recorded Concern Status LastModified by Organization Details LastModified Time None Recorded Advance Directives Directive None Recorded Payers Insurance Date Sequence Insurance Name Policy Number Policy Ramirez Covered Member ID Ramirez Member ID Guarantor Name 06/09/2024 1 [place] [id number] Joseph Janell n [id number] Joseph [id number] [id number] J [id number] (MEDICAID REPLACEMENT - HMO)[id number] Johnson [id number] J Johnson Notes Date Note Type Note Provider Name and Address Orga nization Details Recorded Time 04/04/2024 text/html seeing for elevated PSA 4.55 last check and for last 2 years also was in low 4's. taking tamsulosin2/day helps with stream. family hx neg for prostate issues.Dion Manuel MD [address], [place], [address], [place] Nhasgrs2204/04/2024 16:16:15006/12/2024text/html 64M with elevated PSA., Here for prostate biopsy. PSA 4.55 MRI (05/08/24): 90g, 1.9 cm PIRADS 3 left mid PZMatthew MD Chelly, PHD [address], [place], [address], [facility] Jdgckqz1706/12/2024 15:30:text/html follow up elevated PSA had uronav last Fall negative for CaP. PSA a month or two ago was 4.5 per patient which is stable. voiding fine. taking finasteride and tamsulosin 2/day.Vashti youngblood [facility] Smegnkw8001/23/2025 15:33:41
--- OUTSIDE RECORDS SUMMARY | 2025-09-14 19:02 | XMS_ITS | Patient Health Record ---
Author Organization [facility] Address [address] [facility] [place] [address] Support Name Relationship Address Phone OSIEL SAAVEDRA Guarantor Unknown Unavailable Reason For Referral No Information Immunizations Vaccine Route Administration Date Status Comme nts Adacel / TdaP; 11 years and older IM Intramuscular 04/15/2019 Administered Social History Social History Additional DetailsCategorySocial InfoOptionsDetailsGeneralAlcoholSocially, Plan Of Treatment No Information Insurance Providers Payer Name Payer Address Payer Phone Subscriber Number Group Number Insured Name Patient Relationship to Insured Coverage Start Date Coverage End Date zz[place]ICA [facility] ([place] DO NOT USE [id number] JOHNSON - patient is the insured
--- NOTE | 2025-09-14 19:30 | ED.SYNCOPE ---
HPI - Syncope General Chief Complaint: Syncope/Fainted Stated Complaint: Syncope Time Seen by Provider: 09/14/25 19:12 History of Present Illness HPI narrative: This 65-year-old male comes in by ambulance because of a syncopal experience that occurred just before arrival here. He states that he was sitting at home playing a game and got up to the kitchen and began to feel lightheaded. He was standing at the time when he lost consciousness. He did fall and hit his head but is not complaining of any headache and has no sign of head injury. He recovered after lying there briefly. He has had some feelings of lightheadedness in the past but not syncope. He does not report any symptoms of infection. He did have some wine prior to this. He states that he also took his medications a few hours prior to this event. His medications do include several that are affecting his blood pressure. These include hydrochlorothiazide, lisinopril, tamsulosin, and finasteride. These are not new medicines for him. They are all once daily medicines any takes them all the same time. Currently he feels back to normal and states that he feels that he would be okay to get up and ambulate. Related Data Home Medications ?Medication ?Instructions ?Recorded ?Confirmed finasteride 5 mg tablet 5 mg PO DAILY 03/14/25 09/14/25 Previous Rx's ?Medication ?Instructions ?Recorded hydrochlorothiazide 25 mg tablet 25 mg PO DAILY #90 tabs 06/19/25 lisinopril 40 mg tablet 40 mg PO QDAY #90 tabs 06/19/25 omeprazole 20 mg capsule,delayed 20 mg PO DAILY #90 caps 06/19/25 release simvastatin 40 mg tablet 40 mg PO QHS #90 tabs 06/19/25 tamsulosin 0.4 mg capsule 0.8 mg (2 x 0.4 mg) PO QDAY #180 06/19/25 caps Allergies Allergy/AdvReac Type Severity Reaction Status Date / Time dog dander Allergy Mild Congested Verified 06/19/25 08:45 ragweed pollen Allergy Mild Congested Verified 06/19/25 08:45 Review of Systems Status of ROS: Reports: 10 or more systems reviewed and unremarkable except as noted in History and below Narrative: Constitutional: No fevers, no weight gain or loss. Eyes: No discharge. No vision changes. HENT: No congestion, no sore throat, no ear pain. Cardiovascular: No chest pain, no palpitations. Respiratory: No shortness of breath, no wheezes, no cough. Gastrointestinal: No abdominal pain, no vomiting, no diarrhea. Genitourinary: No dysuria, no hematuria. Musculoskeletal: Normal range of motion. Skin: No rashes, no pruritis. Neurological: No weakness, sensory change, speech change. Endo/Heme/Allergies: No bruising or bleeding. No polydipsia. Pysch: no suicidality, no anxiety, no insomnia. All other systems reviewed and are negative. [facility] Medical History Hyperlipidemia ?E78.5 - Hyperlipidemia, unspecified (ICD-10) Anxiety ?F41.9 - Anxiety disorder, unspecified (ICD-10) Hypertension ?I10 - Essential (primary) hypertension (ICD-10) Benign prostatic hyperplasia ?N40.0 - Benign prostatic hyperplasia without lower urinary tract symptoms (ICD-10) Recurrent herpes simplex (12/21/12) ?B00.9 - Herpesviral infection, unspecified (ICD-10) Tubular adenoma of colon ?D12.6 - Benign neoplasm of colon, unspecified (ICD-10) Elevated PSA ?R97.20 - Elevated prostate specific antigen [PSA] (ICD-10) GERD (gastroesophageal reflux disease) ?K21.9 - Gastro-esophageal reflux disease without esophagitis (ICD-10) Surgical History History of carpal tunnel surgery of left wrist (03/01/25) ?Z98.890 - Other specified postprocedural states (ICD-10) History of reduction of closed fracture (01/27/24) ?Z87.81 - Personal history of (healed) traumatic fracture (ICD-10) History of surgery on lower extremity (04/15/19) ?Z98.890 - Other specified postprocedural states (ICD-10) Status post nasal polypectomy ?Z98.890 - Other specified postprocedural states (ICD-10) Family History (Updated 06/19/25 @ 14:12 by Aneta Osman) Mother Alcohol dependence Father Myocardial infarction Social History Narrative: non-smoker, drinks alcohol several drinks a day multiple times a week, retired from the [employer]. What is your current living situation?: I presently have a place to live Problems where you live: no known problems In the past 12 months, utilities in danger of being shut off: no In past 12 months, lack of transportation kept you from medical appts, meetings, work, or getting things needed for daily living: no In the past 12 mos, have been you worried that your food would run out before you had money to buy more?: never true In the past 12 mos, the food you bought just didn't last and you didn't have money to buy more?: never true Smoking Status: Former smoker What tobacco products do you use: cigarettes Smoking quit date/years: <= 15 years ago Do you use any of these nicotine containing products: None Second hand tobacco smoke exposure: No How often do you have a drink containing alcohol: 4 or more times a week Alcohol type: beer, wine and hard liquor How many standard drinks containing alcohol do you have on a typical day: 3 or 4 How often do you have six or more drinks on one occasion: Monthly AUDIT-C Alcohol total score: 7 Non-prescribed substance use: denies use Caffeine: Yes How often does anyone, including family, friends and others, physically hurt you: never How often does anyone, including family, friends and others, insult or talk down to you: never How often does anyone, including family, friends and others, threaten you with harm: never How often does anyone, including family, friends and others, scream or curse at you: never Exam Narrative: Exam Narrative: Constitutional: Well-developed, well-nourished, no acute distress. HEENT: Normocephalic, atraumatic. Neck: Normal range of motion. Nontender. Supple. Heart: Regular. No murmurs. Normal rate. Intact distal pulses. Lungs: Clear to auscultation. No chest discomfort. No wheezes, rhonchi, or rales. Abdomen: Normal bowel sounds. Nontender. No rebound tenderness. Genitalia: Deferred. Back: No midline tenderness. Normal range of motion. Extremities: Normal range of motion. No injury. Skin: Intact. No rash. Warm. No erythema or pallor. Neurologic: No altered sensation. No weakness. Alert and oriented. Psychiatric: No suicidality. No anxiety or depression. No insomnia. Nursing notes and vitals signs are reviewed. Const: Vital Signs, click to edit/add: Vital Signs - 24 hr 09/14/25 19:04 09/14/25 19:11 09/14/25 19:15 Temperature 97.8 F Pulse Rate Pulse Rate [Pulse Oximeter] 104 H Pulse Rate [orthos tatic lying] Pulse Rate [orthos tatic sitting] Pulse Rate [orthos tatic standing] Respiratory Rate 18 17 17 Blood Pressure Blood Pressure [Ri ght Upper Arm] 197/105 H Blood Pressure [or thostatic lying] Blood Pressure [or thostatic sitting] Blood Pressure [or thostatic standing ] Pulse Oximetry 96 Oxygen Delivery Me thod Room Air 09/14/25 19:30 09/14/25 19:32 09/14/25 19:33 Temperature Pulse Rate 97 94 89 Pulse Rate [Pulse Oximeter] Pulse Rate [orthos tatic lying] Pulse Rate [orthos tatic sitting] Pulse Rate [orthos tatic standing] Respiratory Rate 14 Blood Pressure 144/100 H Blood Pressure [Ri ght Upper Arm] Blood Pressure [or thostatic lying] Blood Pressure [or thostatic sitting] Blood Pressure [or thostatic standing ] Pulse Oximetry 97 92 93 Oxygen Delivery Me thod Room Air 09/14/25 19:45 09/14/25 19:57 09/14/25 20:00 Temperature Pulse Rate 76 72 Pulse Rate [Pulse Oximeter] Pulse Rate [orthos tatic lying] Pulse Rate [orthos tatic sitting] Pulse Rate [orthos tatic standing] Respiratory Rate 22 22 Blood Pressure 154/90 H 128/89 Blood Pressure [Ri ght Upper Arm] Blood Pressure [or thostatic lying] Blood Pressure [or thostatic sitting] Blood Pressure [or thostatic standing ] Pulse Oximetry 95 93 Oxygen Delivery Me thod Room Air 09/14/25 20:01 09/14/25 20:05 Temperature Pulse Rate 85 Pulse Rate [Pulse Oximeter] Pulse Rate [orthos tatic lying] 94 Pulse Rate [orthos tatic sitting] 72 Pulse Rate [orthos tatic standing] 85 Respiratory Rate Blood Pressure Blood Pressure [Ri ght Upper Arm] Blood Pressure [or thostatic lying] 144/100 H Blood Pressure [or thostatic sitting] 154/90 H Blood Pressure [or thostatic standing ] 128/89 Pulse Oximetry 88 Oxygen Delivery Me thod Course Vital Signs Vital signs: Initial Vital Signs Temperature 97.8 F 09/14/25 19:04 Temperature Source Temporal Artery Scan 09/14/25 19:04 Pulse Rate 104 H 09/14/25 19:04 Respiratory Rate 18 09/14/25 19:04 Blood Pressure 197/105 H 09/14/25 19:04 Blood Pressure Mean 135 H 09/14/25 19:04 Pulse Oximetry 96 09/14/25 19:04 Oxygen Delivery Method Room Air 09/14/25 19:04 Vital Signs Temperature 97.8 F 09/14/25 19:04 Pulse Rate 104 H 09/14/25 19:04 Respiratory Rate 18 09/14/25 19:04 Blood Pressure 197/105 H 09/14/25 19:04 Pulse Oximetry 96 09/14/25 19:04 Oxygen Delivery Method Room Air 09/14/25 19:04 Temperature 97.8 F 09/14/25 19:04 Pulse Rate 94 09/14/25 20:05 Respiratory Rate 22 09/14/25 19:57 Blood Pressure 144/100 H 09/14/25 20:05 Pulse Oximetry 88 09/14/25 20:01 Oxygen Delivery Method Room Air 09/14/25 19:57 MDM - Syncope MDM Narrative Medical decision making narrative: This patient had a syncopal event as described above. He arrives here with normal vital signs. His blood pressure is now elevated perhaps is somewhat of a rebound effect. He is not showing any neurologic deficits. He is not showing any sign of injury from the fall. Patient did receive water orally as he states that he feels that his mouth is dry. Labs are obtained and returned with reassuring results. The patient was able to get up and ambulate. I did describe various circumstances that can contribute to decreased blood flow to the brain. His medications certainly are a contributor to this especially as he takes all them at the same time. I advised him to take some in the morning and some others in the evening. Lab Data Labs: Lab Results 09/14/25 Range/Units 17:10 WBC 8.37 (4.50-11.00) K/uL RBC 4.82 (4.30-5.90) m/uL Hgb 15.3 (13.5-17.5) gm/dL Hct 45.8 (37.0-53.0) % MCV 95 (80-100) fL MCH 32 (26-34) pg MCHC 33 (32-36) gm/dL RDW Coeff of Nathan 12.5 (11.5-15.5) % Plt Count 254 (140-440) K/uL Neut % (Auto) 70.1 (42.0-72.0) % Lymph % (Auto) 19.5 L (20-44) % Dodge % (Auto) 7.8 (0.0-11.0) % Eos % (Auto) 1.4 (0.0-7.0) % Baso % (Auto) 0.8 (0.0-3.0) % Neut # (Auto) 5.87 (1.7-7.0) K/uL Lymph # (Auto) 1.60 (0.90-2.90) K/uL Dodge # (Auto) 0.70 (0.00-0.90) K/UL Eos # (Auto) 0.12 (0.00-0.50) K/uL Baso # (Auto) 0.07 (0.00-0.30) K/uL Abs Immat Gran (auto) 0.03 (0.00-0.30) K/uL Imm/Tot Granulo (auto) 0.4 % Discharge Plan Discharge Clinical Impression: Vasovagal syncope Patient Disposition: Home w/ Parent or Adult Condition: Improved Additional Instructions: Continue current plans. Consider taking some of year medicines in the morning and others in the evening so that their blood pressure affects are spread more evenly throughout the day. Follow up with MD or return if symptoms are recurrent. Prescriptions: No Action finasteride 5 mg tablet 5 mg PO DAILY hydrochlorothiazide 25 mg tablet 25 mg PO DAILY Qty: 90 3RF lisinopril 40 mg tablet 40 mg PO QDAY Qty: 90 3RF omeprazole 20 mg capsule,delayed release(DR/EC) 20 mg PO DAILY Qty: 90 3RF simvastatin 40 mg tablet 40 mg PO QHS Qty: 90 3RF tamsulosin 0.4 mg capsule 0.8 mg PO QDAY Qty: 180 3RF Follow Up/Referrals: Mason Saldana MD [Primary Care Provider, Family Practice] Stand Alone Forms: [facility] Info Instructions
[2025-09-14 19:46] LABS: Hematocrit* 45.8 % (37.0-53.0); Hemoglobin* 15.3 gm/dL (13.5-17.5); Immature Granulocytes Abs Auto 0.03 K/uL (0.00-0.30); Immature Granulocytes Pct Auto 0.4 %; Mean Corpuscular HGB Conc 33 gm/dL (32-36); Mean Corpuscular Hemoglobin 32 pg (26-34); Mean Corpuscular Volume 95 fL (80-100); RDW Coefficient of Variation % 12.5 % (11.5-15.5); Red Blood Count* 4.82 m/uL (4.30-5.90); White Blood Count* 8.37 K/uL (4.50-11.00)
[2025-09-14 19:50] LABS: Lymphocytes Absolute Auto 1.60 K/uL (0.90-2.90); Slide Review Reflex No
--- OUTSIDE RECORDS SUMMARY | 2025-09-14 19:50 | XMS_ITS | Patient Health Record ---
Author Organization [facility] Address [address] [facility] [place] [address] Support Name Relationship Address Phone OSIEL SAAVEDRA [...] Start Date Coverage End Date [facility] DO NOT USE [id number] JOHNSON - patient is the insured
[2025-09-14 20:16] LABS: Chloride* 97 mmol/L (96-114); Potassium* 3.4 mmol/L (3.6-5.1); Sodium* 136 mmol/L (135-149)
[2025-09-14 20:19] LABS: Anion Gap 12 mEq/L (7-15); Blood Urea Nitrogen* 10 mg/dL (7-30); Calcium* 9.4 mg/dL (8.4-10.6); Carbon Dioxide* 27 mmol/L (20-32); Creatinine* 0.8 mg/dL (0.5-1.5); Est. Creatinine Clearance* 78.44; Estimated Glomerular Filt Rate 98 ml/min; Glucose* 107 mg/dL (60-115)
== END 2025-09-14 21:05 | disposition home or self-care (01) ==
PROVIDERS: Emergency Provider Emergency Medicine Emergency Medical Services; PCP Family Medicine
DX: R55 Syncope and collapse (principal); S09.90XA Unspecified injury of head, initial encounter
CPT/HCPCS: 36415; 80048; 85025; 99283; 99284